=== PATIENT | male | born 1950 | race Caucasian/White ===

== ENCOUNTER 2021-08-05 06:15 | Inpatient (IN) ==
[2021-08-05] MEDS ORDERED: 0.9 % Sodium Chloride 1,000 ML ONE ×2 (06:35→07:57)
[2021-08-05] MEDS ORDERED: 0.9 % Sodium Chloride 250 ML ONE (06:44)
[2021-08-05] MEDS ORDERED: D5% in Water 100 ML ONE (06:44)
[2021-08-05] MEDS ORDERED: Vancomycin 1,000 MG VIAL ONE (06:44)
[2021-08-05] MEDS ORDERED: Iopamidol - 370 200 ML INFUS..BTL ONE (07:13)
[2021-08-05] MEDS ORDERED: *HR* Heparin 10,000 UNIT/10 ML VIAL ONE (07:13)
[2021-08-05] MEDS ORDERED: Protamine Sulfate 50 MG/5 ML VIAL IVP ONE (07:13)
[2021-08-05] MEDS ORDERED: Heparin 1,000 UNITS/500 mL 1,500 ML ONE (07:13)
[2021-08-05] MEDS ORDERED: Heparin 1,000 UNITS/500 mL 500 ML ONE ×2 (07:14→08:06)
[2021-08-05] MEDS ORDERED: 0.9 % Sodium Chloride 2,000 ML ONE (07:14)
[2021-08-05] MEDS ORDERED: *HR* FentaNYL (PF) 100 MCG/2 ML VIAL ONE (07:27)
[2021-08-05] MEDS ORDERED: *HR* Midazolam HCl 2 MG/2 ML VIAL ONE (07:28)
[2021-08-05] MEDS ORDERED: Buckersberg's Blood Cardioplegia PF ONE (07:30)
[2021-08-05] MEDS ORDERED: Norepinephrine 4 MG in 0.9 % Sodium Chloride 250 ML IVC PRN (07:30)
[2021-08-05] MEDS ORDERED: Heparin 15,000 UNIT in 0.9 % Sodium Chloride 500 ML IV ONE (07:30)
[2021-08-05] MEDS ORDERED: del Nido Cardioplegia Solution PF ONE ×2 (07:30)
[2021-08-05] MEDS ORDERED: Perflutren Lipid Microsphere 1.3 ML in 0.9 % Sodium Chloride 8.7 ML IVP PRN (07:35)
[2021-08-05] MEDS ORDERED: Valsartan 80 MG TABLET PO SCH (09:00)
[2021-08-05] MEDS: Aspirin Enteric Coated 81 MG Tablet PO SCH (11:09)
[2021-08-05] MEDS ORDERED: Ondansetron 4 MG/2 ML VIAL IVP ONE (12:36)
[2021-08-05] MEDS ORDERED: *HR* Succinylcholine 200 MG/10 ML VIAL IVP ONE (12:36)
[2021-08-05] MEDS ORDERED: *HR* Propofol 200 MG/20 ML VIAL IVP ONE (12:36)
[2021-08-05] MEDS: carvediloL 6.25 MG TABLET PO SCH (16:12)
[2021-08-05] MEDS: Valsartan 80 MG TABLET PO SCH (17:34)
[2021-08-06 07:01] LABS: Basophils % 0.3 %
[2021-08-06 07:03] LABS: Eosinophils % 0.4 %; Hematocrit 32.9 % (37.5-50.1); Hemoglobin 11.2 g/dL (12.9-16.9); Immature Granulocytes % 0.4 % (0-4); Immature Platelets 8.5 % (1.1-6.1); Lymphocytes # 1.6 K/mcL (0.6-4.6); Lymphocytes % 14.8 %; Mean Corpuscular Hemoglobin 34.9 pg (28.0-33.3); Mean Corpuscular Volume 102.5 fL (83.0-100.0); Mean Platelet Volume 11.5 fL (9.4-12.4); Monocytes # 1.4 K/mcL (0.0-1.3); Monocytes % 12.5 %; Neutrophils # 7.8 K/mcL (1.6-8.9); Red Blood Count 3.21 M/mcL (4.19-5.50); Red Cell Distribution Width 12.7 % (11.5-14.5); Segmented Neutrophils % 71.6 %; White Blood Count 10.9 K/mcL (4.3-11.1)
[2021-08-06 07:04] LABS: INR 1.1; Prothrombin Time 12.6 Seconds (9.4-12.1)
[2021-08-06 07:27] LABS: BUN/Creatinine Ratio 21 (6-26); Blood Urea Nitrogen 16 mg/dL (8-23); Calcium 8.7 mg/dL (8.6-10.3); Carbon Dioxide 28 mEq/L (23-29); Chloride 104 mEq/L (98-107); Glucose 104 mg/dL (70-105); Osmolality,Calculated 285 (280-300); Sodium 137 mEq/L (136-145); eGFR For African Americans > 60 (> 60); eGFR For Non-African Americans > 60 (> 60)
[2021-08-06 07:58] LABS: Platelet Count 92 K/mcL (140-400); Platelet Estimate Slight Decrease (Normal)
[2021-08-06] MEDS: carvediloL 6.25 MG TABLET PO SCH (08:23)
[2021-08-06 08:30] VITALS: BP 167/84; PULSE 53; TEMP 97.7; O2SAT 97
[2021-08-06] MEDS: Aspirin Enteric Coated 81 MG Tablet PO SCH (08:31)
[2021-08-06] MEDS: Valsartan 80 MG TABLET PO SCH (08:31)
== END 2021-08-06 12:37 | disposition home or self-care (01) | DRG 267 ==
LOC: INVDIALAB 06:15 → 2NNU 10:41
PROVIDERS: ADMIT Thoracic Surgery (Cardiothoracic Vascular Surgery); ATTEND Thoracic Surgery (Cardiothoracic Vascular Surgery)

== ENCOUNTER 2021-09-30 10:10 | Inpatient (IN) ==
[2021-09-30] MEDS ORDERED: CeFAZolin Syr 2,000MG/20 ML 2,000 MG/20 ML SYRINGE IVPB ONE (10:37)
[2021-09-30] MEDS ORDERED: Ringers Solution, Lactated 1,000 ML IVC SCH (10:45)
[2021-09-30] MEDS ORDERED: ceFAZolin 1,000 MG, Sodium Chloride IRRigation 1,000 ML IR ONE (12:10)
[2021-09-30] MEDS ORDERED: Ondansetron 4 MG/2 ML VIAL IVP PRN ×2 (12:22→18:47)
[2021-09-30] MEDS ORDERED: *HR* Labetalol 20 MG/4 ML SYRINGE IVP PRN ×2 (12:22→18:47)
[2021-09-30] MEDS ORDERED: Heparin 1,000 UNITS/500 mL 2,000 ML ONE (13:22)
[2021-09-30] MEDS ORDERED: Iopamidol - 300 100 ML INFUS..BTL ONE (13:23)
[2021-09-30] MEDS ORDERED: Lidocaine HCL 4 ML Topical Solution (Laryng-O-Jet Kit Sterile Pak) TP ONE (13:36)
[2021-09-30] MEDS ORDERED: *HR* Propofol 200 MG/20 ML VIAL IVP ONE (13:37)
[2021-09-30] MEDS ORDERED: *HR* Rocuronium Bromide 50 MG/5 ML VIAL ONE ×2 (13:37→15:29)
[2021-09-30] MEDS ORDERED: Lidocaine -MPF 2% 5 ML VIAL ONE ×2 (13:37→15:40)
[2021-09-30] MEDS ORDERED: *HR* FentaNYL (PF) 100 MCG/2 ML VIAL ONE (13:37)
[2021-09-30] MEDS ORDERED: Ondansetron 4 MG/2 ML VIAL ONE (13:37)
[2021-09-30] MEDS ORDERED: *HR* Midazolam HCl 2 MG/2 ML VIAL ONE (13:37)
[2021-09-30] MEDS ORDERED: *HR* Vasopressin 20 UNIT/ML VIAL ONE (13:45)
[2021-09-30] MEDS ORDERED: Lacri-Lube 3.5 GM TUBE ONE (14:13)
[2021-09-30] MEDS ORDERED: Albumin Human 5% 0 GM/0 ML IV.SOLN ONE (14:54)
[2021-09-30 15:06] LABS: ABG Base Excess 2 mEq/L (-2 to 3); ABG Chloride 103 mEq/L (98-107); ABG Glucose 80 mg/dL (60-95); ABG HCO3 26 mEq/L (21-27); ABG Ionized Calcium 1.16 mmol/L (1.15-1.35); ABG Oxygen Saturation 100 % (95-98); ABG PCO2 38 mmHg (35-45); ABG PH 7.45 pH Units (7.32-7.45); ABG PO2 240 mmHg (85-104); ABG TCO2 27 mEq/L (20-26)
[2021-09-30] MEDS ORDERED: *HR* Heparin 5,000 UNIT/ML VIAL ONE ×2 (15:15)
[2021-09-30] MEDS ORDERED: Acetaminophen IV 1,000 MG/100 ML BAG IVPB ONE (15:57)
[2021-09-30] MEDS ORDERED: *HR* HYDROMORPHONE 2 MG/ML VIAL ONE (16:01)
[2021-09-30 17:01] LABS: ABG Base Excess 2 mEq/L (-2 to 3); ABG Chloride 105 mEq/L (98-107); ABG Glucose 92 mg/dL (60-95); ABG HCO3 26 mEq/L (21-27); ABG Ionized Calcium 1.09 mmol/L (1.15-1.35); ABG Oxygen Saturation 100 % (95-98); ABG PCO2 36 mmHg (35-45); ABG PH 7.46 pH Units (7.32-7.45); ABG PO2 236 mmHg (85-104); ABG TCO2 27 mEq/L (20-26)
[2021-09-30] MEDS ORDERED: *HR* Labetalol 20 MG/4 ML SYRINGE IVP ONE (17:46)
[2021-09-30] MEDS ORDERED: Acetaminophen 325 MG TABLET PO PRN (18:47)
[2021-09-30] MEDS ORDERED: *HR* OxyCODONE Immed Rel 5 MG TABLET PO PRN (18:47)
[2021-09-30] MEDS ORDERED: Naloxone 0.4 MG/ML INJ IVP PRN (18:47)
[2021-09-30] MEDS ORDERED: *HR* HYDROcodone/Acet 5/325 mg TABLET PO PRN (18:47)
[2021-09-30] MEDS: carvediloL 6.25 MG TABLET PO SCH (20:26)
[2021-09-30] MEDS: Valsartan 80 MG TABLET PO SCH (20:26)
[2021-09-30] MEDS: CeFAZolin 2,000 MG/120 ML BAG IVPB SCH (22:15)
[2021-10-01 02:40] LABS: Hemoglobin 10.4 g/dL (12.9-16.9); Mean Platelet Volume 12.1 fL (9.4-12.4)
[2021-10-01 02:42] LABS: Hematocrit 30.4 % (37.5-50.1); Immature Platelets 10.6 % (1.1-6.1); Mean Corpuscular HGB Conc 34.2 g/dL (31.6-35.5); Mean Corpuscular Hemoglobin 34.2 pg (28.0-33.3); Red Blood Count 3.04 M/mcL (4.19-5.50); Red Cell Distribution Width 13.2 % (11.5-14.5); White Blood Count 8.4 K/mcL (4.3-11.1)
[2021-10-01 03:38] LABS: BUN/Creatinine Ratio 27 (6-26); Blood Urea Nitrogen 20 mg/dL (8-23); Carbon Dioxide 28 mEq/L (23-29); Chloride 104 mEq/L (98-107); Glucose 140 mg/dL (70-105); Osmolality,Calculated 291 (280-300); Sodium 138 mEq/L (136-145)
[2021-10-01 04:10] VITALS: TEMP 98.3
[2021-10-01] MEDS: CeFAZolin 2,000 MG/120 ML BAG IVPB SCH ×2 (05:33→14:45)
[2021-10-01] MEDS: Valsartan 80 MG TABLET PO SCH (08:24)
[2021-10-01] MEDS: carvediloL 6.25 MG TABLET PO SCH (08:24)
[2021-10-01] MEDS ORDERED: Aspirin Enteric Coated 81 MG Tablet PO SCH (09:00)
[2021-10-01 17:26] VITALS: BP 146/65; PULSE 95; O2SAT 97
== END 2021-10-01 17:54 | disposition home or self-care (01) | DRG 269 ==
LOC: SAMDAY 10:10 → 2NNU 13:45
PROVIDERS: ADMIT Surgery Vascular Surgery; ATTEND Surgery Vascular Surgery